=== PATIENT | female | born 1945 | race Caucasian/White ===

== ENCOUNTER 2024-01-23 19:42 | Inpatient (IN) | payer OTHER, MEDICAID ==
[~2024-01-23] VITALS: Ht 154.9 cm; Wt 67.6 kg
[2024-01-23 20:07] VITALS: BP_SYST 104; PULSE 79; RESP 16; TEMP 98; O2SAT 94
[2024-01-23] MEDS: OXYMETAZOLINE HCL 0.05% NASAL SPRAY NS ONE (20:08)
[2024-01-23] MEDS ORDERED: ONDANSETRON 4 MG ODT TAB ONE (20:35)
[2024-01-23] MEDS: TRANEXAMIC ACID 1,000 MG/10 ML VIAL IV ONE (20:39)
[2024-01-23] MEDS: ONDANSETRON HCL 4 MG/2 ML VIAL IVP ONE (20:45)
[2024-01-23] MEDS ORDERED: LIDOCAINE VISCOUS 2%, 15 ML UDC ONE (20:58)
[2024-01-23 21:22] LABS: BASOPHILS # (AUTO) 0.1 K/uL (0.0-0.2); BASOPHILS % (AUTO) 0.7 % (0.0-2.0); EOSINOPHILS # (AUTO) 0.1 K/uL (0.0-0.4); EOSINOPHILS % (AUTO) 1.1 % (0.0-4.0); HEMATOCRIT 32.9 % (36-48); HEMOGLOBIN 10.5 g/dL (12.0-16.0); LYMPHOCYTES % (AUTO) 10.4 % (20.5-51.5); MEAN CORPUSCULAR HEMOGLOBIN 26 pg (27-31); MEAN CORPUSCULAR HGB CONC 32 % (32-36); MEAN CORPUSCULAR VOLUME 81 fL (79.0-98.0); MONOCYTES # (AUTO) 1.1 K/uL (0.0-1.0); MONOCYTES % (AUTO) 11.8 % (1.7-9.3); NEUTROPHILS # (AUTO) 7.4 K/uL (1.8-7.7); PLATELET COUNT (AUTO) 400 K/uL (130-430); RED BLOOD CELL COUNT(AUTO) 4.07 MIL/uL (4.2-6.2); RED CELL DISTRIBUTION WIDTH 21.7 % (9.0-15.0); WHITE BLOOD COUNT (AUTO) 9.7 K/uL (4.8-10.8)
[2024-01-23 21:31] LABS: ANION GAP 4 (5-15); CALCIUM 8.8 mg/dL (8.4-11.0); CARBON DIOXIDE 35 mmol/L (23-29); CHLORIDE 95 mmol/L (98-107); CREATININE 1.29 mg/dL (0.55-1.30); GLUCOSE 215 mg/dL (74-106); POTASSIUM 4.4 mmol/L (3.5-5.1); SODIUM SERUM 134 mmol/L (136-145); UREA NITROGEN, BLOOD 65 mg/dL (8-21)
[2024-01-23] MEDS: ACETAMINOPHEN 500 MG TABLET PO ONE (21:36)
[2024-01-23] MEDS: LIDOCAINE VISCOUS 2%, 15 ML UDC MM ONE (21:42)
[2024-01-23 21:43] LABS: INR 4.2 (0.8-1.2); PROTHROMBIN TIME 40.3 SECS (9.5-12.5)
[2024-01-23] MEDS: PHYTONADIONE 10 MG/ML AMP IV ONE (23:52)
[2024-01-24] VITALS (10 sets, daily range): BP systolic 85–144; PULSE 62–87; RESP 16–18; TEMP 96.7–97.9; O2SAT 96–100
[2024-01-24] MEDS: ACETAMINOPHEN 325 MG TABLET PO PRN (11:22)
[2024-01-24] MEDS ORDERED: OXYM15MI9 NS (12:06)
[2024-01-24] MEDS ORDERED: MUC10RT MC (12:06)
[2024-01-24] MEDS ORDERED: ACET325T53 PO (12:06)
[2024-01-24] MEDS ORDERED: ALBU2.5V7 INH (12:07)
[2024-01-24] MEDS ORDERED: BACL10TA PO (12:10)
[2024-01-24] MEDS ORDERED: BISA-140 PO (12:15)
[2024-01-24] MEDS ORDERED: BUME1TAB9 PO (12:17)
[2024-01-24] MEDS ORDERED: BRIM5DRO21 (12:17)
[2024-01-24] MEDS ORDERED: FEBU40TA6 (12:30)
[2024-01-24] MEDS ORDERED: DAPA10TA7 (12:30)
[2024-01-24] MEDS ORDERED: CLOP75TA32 PO (12:30)
[2024-01-24] MEDS ORDERED: PRED5TAB PO (12:30)
[2024-01-24] MEDS ORDERED: DOCU-144 PO (12:30)
[2024-01-24] MEDS ORDERED: PRAV80TA20 PO (12:30)
[2024-01-24] MEDS ORDERED: GUAI100S14 PO (12:30)
[2024-01-24] MEDS ORDERED: TAMS-11 PO (12:30)
[2024-01-24] MEDS ORDERED: METH1TAB35 PO (12:30)
[2024-01-24] MEDS ORDERED: CEL250 PO (12:30)
[2024-01-24] MEDS ORDERED: SPIR50TA5 PO (12:30)
[2024-01-24] MEDS ORDERED: MELA5TAB21 PO (12:30)
[2024-01-24] MEDS ORDERED: IPRATROPIUM BROM 0.5 MG/2.5 ML VIAL.NEB (ATROVENT) INH PRN (13:30)
[2024-01-24] MEDS ORDERED: LORazepam 2 MG/ML VIAL IVP PRN (13:30)
[2024-01-24] MEDS ORDERED: BACLOFEN 10 MG TABLET PO PRN (13:30)
[2024-01-24] MEDS ORDERED: HYDROcodone/ACETAMIN 10-325 MG TAB PO PRN (13:30)
[2024-01-24] MEDS ORDERED: ACETAMINOPHEN 325 MG TABLET PO PRN (13:30)
[2024-01-24] MEDS ORDERED: ALBUTEROL SULFATE 0.083% 2.5 MG/3 ML VIAL.NEB INH PRN (13:30)
[2024-01-24] MEDS ORDERED: ONDANSETRON HCL 4 MG/2 ML VIAL IVP PRN (13:30)
[2024-01-24] MEDS ORDERED: BISACODYL 5 MG TABLET.DR (DULCOLAX) PO PRN (13:30)
[2024-01-24] MEDS ORDERED: MELATONIN 5 MG TABLET PO PRN (13:30)
[2024-01-24] MEDS ORDERED: HYDROcodone/ACETAMIN 5-325 MG TAB (NORCO/ VICODIN) PO PRN (13:30)
[2024-01-24] MEDS ORDERED: DOCUSATE SODIUM 100 MG CAPSULE PO PRN (13:30)
[2024-01-24] MEDS ORDERED: NALOXONE HCL 0.4 MG/ML AMP (NARCAN) IVP PRN ×2 (13:30)
[2024-01-24] MEDS ORDERED: SSNOVOLOG SUBCUT (13:45)
[2024-01-24] MEDS ORDERED: INSU100V9 SQ (13:45)
[2024-01-24] MEDS: INSULIN REGULAR, HUMAN 100 UNITS/ML, 3 ML VIAL (humuLIN R) SUBCUT PRN (13:49)
[2024-01-24] MEDS: SPIRONOLACTONE 50 MG TABLET (ALDACTONE) PO ONE (14:53)
[2024-01-24] MEDS: TAMSULOSIN HCL 0.4 MG CAP PO ONE (14:53)
[2024-01-24] MEDS: NORMAL SALINE 5 ML DISP.SYRIN IVF SCH (14:54)
[2024-01-24] MEDS: EMPAGLIFLOZIN 10 MG TABLET PO ONE (16:36)
[2024-01-24] MEDS: INSULIN Lispro 100 UNITS/ML, 3 ML VIAL (humaLOG) SUBCUT SCH (17:18)
[2024-01-24 17:31] LABS: BASOPHILS % (AUTO) 0.4 % (0.0-2.0); EOSINOPHILS # (AUTO) 0.2 K/uL (0.0-0.4); EOSINOPHILS % (AUTO) 2.3 % (0.0-4.0); HEMATOCRIT 31.9 % (36-48); HEMOGLOBIN 10.4 g/dL (12.0-16.0); LYMPHOCYTES # (AUTO) 0.8 K/uL (1.0-5.5); LYMPHOCYTES % (AUTO) 8.9 % (20.5-51.5); MEAN CORPUSCULAR HEMOGLOBIN 26 pg (27-31); MEAN CORPUSCULAR HGB CONC 33 % (32-36); MEAN CORPUSCULAR VOLUME 80 fL (79.0-98.0); MONOCYTES # (AUTO) 1.4 K/uL (0.0-1.0); MONOCYTES % (AUTO) 14.9 % (1.7-9.3); NEUTROPHILS # (AUTO) 6.7 K/uL (1.8-7.7); NEUTROPHILS % (AUTO) 73.5 % (40.0-70.0); PLATELET COUNT (AUTO) 398 K/uL (130-430); RED BLOOD CELL COUNT(AUTO) 3.97 MIL/uL (4.2-6.2); RED CELL DISTRIBUTION WIDTH 21.6 % (9.0-15.0); WHITE BLOOD COUNT (AUTO) 9.1 K/uL (4.8-10.8)
[2024-01-24 17:38] LABS: ANION GAP 6 (5-15); CALCIUM 8.8 mg/dL (8.4-11.0); CARBON DIOXIDE 31 mmol/L (23-29); CHLORIDE 96 mmol/L (98-107); CREATININE 1.23 mg/dL (0.55-1.30); GLUCOSE 307 mg/dL (74-106); POTASSIUM 4.1 mmol/L (3.5-5.1); SODIUM SERUM 133 mmol/L (136-145); UREA NITROGEN, BLOOD 53 mg/dL (8-21)
[2024-01-24 17:43] LABS: INR 1.3 (0.8-1.2); PROTHROMBIN TIME 13.3 SECS (9.5-12.5)
[2024-01-24] MEDS: METHENAMINE HIPPURATE 1 GM PO SCH (21:00)
[2024-01-24] MEDS ORDERED: NON-FORMULARY MEDICATION (Methenamine Hippurate 1 TAB) PO SCH (21:00)
[2024-01-24] MEDS: mycophenolate mofetiL 250 MG CAPSULE PO SCH (21:21)
[2024-01-24] MEDS: BUMETANIDE 1 MG TABLET PO SCH (21:22)
[2024-01-24] MEDS: TIMOLOL MALEATE 0.5% OPHTHALMIC DROPS 5 ML BOTH EYES SCH (21:22)
[2024-01-24] MEDS: BRIMONIDINE TARTRATE 0.2% 5 mL EYE DROPS BOTH EYES SCH (21:22)
[2024-01-24] MEDS: ATORVASTATIN 20 MG TABLET PO SCH (21:22)
[2024-01-24] MEDS: INSULIN GLARGINE 100 UNITS/ML, 10 ML VIAL SQ SCH (21:31)
[2024-01-25 01:46] VITALS: BP_SYST 100; PULSE 76; RESP 18; TEMP 98.4; O2SAT 96
[2024-01-25 04:00] VITALS: BP_SYST 112; PULSE 85; RESP 20; TEMP 97.6; O2SAT 97
[2024-01-25 08:04] VITALS: BP_SYST 105; PULSE 97; RESP 18; TEMP 98; O2SAT 96
[2024-01-25 08:04] LABS: ANION GAP 6 (5-15); CALCIUM 8.6 mg/dL (8.4-11.0); CARBON DIOXIDE 31 mmol/L (23-29); CHLORIDE 96 mmol/L (98-107); CREATININE 0.98 mg/dL (0.55-1.30); GLUCOSE 307 mg/dL (74-106); POTASSIUM 3.9 mmol/L (3.5-5.1); SODIUM SERUM 133 mmol/L (136-145); UREA NITROGEN, BLOOD 41 mg/dL (8-21)
[2024-01-25 08:27] LABS: BASOPHILS % (AUTO) 0.1 % (0.0-2.0); EOSINOPHILS # (AUTO) 0.1 K/uL (0.0-0.4); EOSINOPHILS % (AUTO) 1.2 % (0.0-4.0); HEMATOCRIT 31.8 % (36-48); HEMOGLOBIN 10.1 g/dL (12.0-16.0); LYMPHOCYTES # (AUTO) 0.7 K/uL (1.0-5.5); LYMPHOCYTES % (AUTO) 6.5 % (20.5-51.5); MEAN CORPUSCULAR HEMOGLOBIN 26 pg (27-31); MEAN CORPUSCULAR HGB CONC 32 % (32-36); MEAN CORPUSCULAR VOLUME 81 fL (79.0-98.0); MONOCYTES # (AUTO) 1.5 K/uL (0.0-1.0); MONOCYTES % (AUTO) 13.2 % (1.7-9.3); NEUTROPHILS # (AUTO) 8.7 K/uL (1.8-7.7); PLATELET COUNT (AUTO) 401 K/uL (130-430); RED BLOOD CELL COUNT(AUTO) 3.94 MIL/uL (4.2-6.2); RED CELL DISTRIBUTION WIDTH 21.5 % (9.0-15.0); WHITE BLOOD COUNT (AUTO) 11.1 K/uL (4.8-10.8)
[2024-01-25] MEDS: CLOPIDOGREL BISULFATE 75 MG TABLET PO SCH (08:37)
[2024-01-25] MEDS: predniSONE 5 MG TABLET PO SCH (08:38)
[2024-01-25] MEDS: EMPAGLIFLOZIN 10 MG TABLET PO SCH (08:39)
[2024-01-25] MEDS: SPIRONOLACTONE 50 MG TABLET (ALDACTONE) PO SCH (08:50)
[2024-01-25] MEDS ORDERED: TAMSULOSIN HCL 0.4 MG CAP PO SCH (09:00)
[2024-01-25] MEDS: TAMSULOSIN HCL 0.4 MG CAP PO SCH (09:11)
[2024-01-25 11:20] VITALS: BP_SYST 100; PULSE 79; RESP 16; TEMP 98.1; O2SAT 96
[2024-01-25] MEDS ORDERED: BISO5TAB15 PO (14:24)
[2024-01-25] MEDS: ATENOLOL 50 MG TABLET (TENORMIN) PO ONE (16:48)
[2024-01-25 17:01] VITALS: BP_SYST 100; PULSE 74; RESP 18; TEMP 98.2; O2SAT 97
[2024-01-25 20:05] VITALS: BP_SYST 111; PULSE 78; RESP 19; TEMP 98.9; O2SAT 97
[2024-01-25] MEDS ORDERED: BISOPROLOL FUMARATE 5 MG TABLET PO SCH (21:00)
[2024-01-26 00:42] VITALS: BP_SYST 99; PULSE 78; RESP 18; TEMP 98.4; O2SAT 96
[2024-01-26 05:50] LABS: BASOPHILS # (AUTO) 0.1 K/uL (0.0-0.2); BASOPHILS % (AUTO) 0.5 % (0.0-2.0); EOSINOPHILS # (AUTO) 0.1 K/uL (0.0-0.4); EOSINOPHILS % (AUTO) 0.9 % (0.0-4.0); HEMATOCRIT 30.7 % (36-48); HEMOGLOBIN 9.9 g/dL (12.0-16.0); LYMPHOCYTES # (AUTO) 0.9 K/uL (1.0-5.5); LYMPHOCYTES % (AUTO) 6.6 % (20.5-51.5); MEAN CORPUSCULAR HEMOGLOBIN 26 pg (27-31); MEAN CORPUSCULAR HGB CONC 32 % (32-36); MEAN CORPUSCULAR VOLUME 80 fL (79.0-98.0); MONOCYTES # (AUTO) 1.9 K/uL (0.0-1.0); NEUTROPHILS # (AUTO) 10.3 K/uL (1.8-7.7); PLATELET COUNT (AUTO) 363 K/uL (130-430); RED BLOOD CELL COUNT(AUTO) 3.84 MIL/uL (4.2-6.2); RED CELL DISTRIBUTION WIDTH 21.8 % (9.0-15.0); WHITE BLOOD COUNT (AUTO) 13.2 K/uL (4.8-10.8)
[2024-01-26 06:25] LABS: ALANINE AMINOTRANSFERASE 42 U/L (12-78); ANION GAP 6 (5-15); ASPARTATE AMINOTRANSFERASE 50 U/L (10-37); CALCIUM 8.3 mg/dL (8.4-11.0); CARBON DIOXIDE 32 mmol/L (23-29); CHLORIDE 96 mmol/L (98-107); CREATININE 0.93 mg/dL (0.55-1.30); GLUCOSE 173 mg/dL (74-106); POTASSIUM 3.6 mmol/L (3.5-5.1); SODIUM SERUM 134 mmol/L (136-145); TOTAL BILIRUBIN 0.7 mg/dL (0.0-1.0); TOTAL PROTEIN, SERUM 6.5 g/dL (6.4-8.3); UREA NITROGEN, BLOOD 35 mg/dL (8-21)
[2024-01-26 08:45] VITALS: O2SAT 97
[2024-01-26] MEDS: ATENOLOL 50 MG TABLET (TENORMIN) PO SCH (08:55)
[2024-01-26] MEDS ORDERED: ATENOLOL 50 MG TABLET (TENORMIN) PO SCH (09:00)
[2024-01-26 11:49] VITALS: BP_SYST 99; PULSE 82; RESP 18; TEMP 97.7; O2SAT 96
[2024-01-26 14:45] VITALS: O2SAT 98
[2024-01-26 16:27] VITALS: BP_SYST 106; PULSE 107; RESP 16; TEMP 97.9; O2SAT 95
[2024-01-26 20:05] VITALS: BP_SYST 101; PULSE 67; RESP 18; TEMP 97.8; O2SAT 95
[2024-01-26] MEDS: PIPERACILLIN/TAZO 3.375 GM in D5W 50 ML IV SCH (21:34)
[2024-01-26] MEDS: WARFARIN SODIUM 2 MG TABLET PO SCH (23:00)
[2024-01-26] MEDS: VANCOMYCIN HCL 1,000 MG in NS 250 ML IV SCH (23:24)
[2024-01-27] VITALS (7 sets, daily range): BP systolic 84–100; PULSE 65–89; RESP 16–18; TEMP 96.5–98.3; O2SAT 95–99
[2024-01-27 00:16] LABS: BILIRUBIN,URINE NEGATIVE (NEGATIVE); CLARITY/URINE SL CLOUDY (CLEAR); COLOR,URINE YELLOW (YELLOW); GLUCOSE,URINE 3+ (NEGATIVE); KETONES,URINE NEGATIVE (NEGATIVE); LEUKOCYTE ESTERASE ,URINE 2+ (NEGATIVE); NITRITE, URINE NEGATIVE (NEGATIVE); PROTEIN URINE NEGATIVE (NEGATIVE); UROBILINOGEN,URINE 0.2 (0.2-1.0)
[2024-01-27 00:33] LABS: BLOOD, URINE TRACE (NEGATIVE); WBC,URINE >100 /HPF (0-3)
[2024-01-27 00:34] LABS: BACTERIA,URINE MANY /HPF (None Seen); YEAST,URINE Many /HPF (None Seen)
[2024-01-27 04:39] LABS: ERYTHROCYTE SEDIMENTATION RATE 68 MM/HR (0-20)
[2024-01-27 04:55] LABS: PROTHROMBIN TIME 10.8 SECS (9.5-12.5)
[2024-01-27 05:09] LABS: BASOPHILS % (AUTO) 0.4 % (0.0-2.0); EOSINOPHILS # (AUTO) 0.2 K/uL (0.0-0.4); HEMATOCRIT 31.8 % (36-48); HEMOGLOBIN 10.1 g/dL (12.0-16.0); LYMPHOCYTES % (AUTO) 10.1 % (20.5-51.5); MEAN CORPUSCULAR HEMOGLOBIN 26 pg (27-31); MEAN CORPUSCULAR HGB CONC 32 % (32-36); MEAN CORPUSCULAR VOLUME 81 fL (79.0-98.0); MONOCYTES # (AUTO) 1.6 K/uL (0.0-1.0); MONOCYTES % (AUTO) 16.5 % (1.7-9.3); NEUTROPHILS # (AUTO) 6.8 K/uL (1.8-7.7); PLATELET COUNT (AUTO) 338 K/uL (130-430); RED BLOOD CELL COUNT(AUTO) 3.95 MIL/uL (4.2-6.2); RED CELL DISTRIBUTION WIDTH 21.8 % (9.0-15.0); WHITE BLOOD COUNT (AUTO) 9.6 K/uL (4.8-10.8)
[2024-01-27 05:10] LABS: ANION GAP 8 (5-15); CALCIUM 8.3 mg/dL (8.4-11.0); CARBON DIOXIDE 30 mmol/L (23-29); CHLORIDE 98 mmol/L (98-107); CREATININE 0.97 mg/dL (0.55-1.30); GLUCOSE 165 mg/dL (74-106); POTASSIUM 4.2 mmol/L (3.5-5.1); SODIUM SERUM 136 mmol/L (136-145); UREA NITROGEN, BLOOD 30 mg/dL (8-21)
[2024-01-27] MEDS: NS 500 ML IV ONE (10:08)
[2024-01-27] MEDS: FLUCONAZOLE 200 mg/ NS 100 ML IV SCH (16:38)
[2024-01-27] MEDS: CALCIUM GLUC 2 GM/100ML-NACL 100 ML IV ONE (18:22)
[2024-01-27] MEDS: OXYMETAZOLINE HCL 0.05% NASAL SPRAY NS ONE (18:30)
[2024-01-28] VITALS (7 sets, daily range): BP systolic 95–110; PULSE 74–88; RESP 16–19; TEMP 96.2–97.9; O2SAT 96–98
[2024-01-28 05:24] LABS: BASOPHILS # (AUTO) 0.1 K/uL (0.0-0.2); BASOPHILS % (AUTO) 0.6 % (0.0-2.0); EOSINOPHILS # (AUTO) 0.2 K/uL (0.0-0.4); EOSINOPHILS % (AUTO) 2.2 % (0.0-4.0); HEMATOCRIT 30.4 % (36-48); HEMOGLOBIN 9.7 g/dL (12.0-16.0); LYMPHOCYTES # (AUTO) 0.9 K/uL (1.0-5.5); LYMPHOCYTES % (AUTO) 10.8 % (20.5-51.5); MEAN CORPUSCULAR HEMOGLOBIN 26 pg (27-31); MEAN CORPUSCULAR HGB CONC 32 % (32-36); MEAN CORPUSCULAR VOLUME 81 fL (79.0-98.0); MONOCYTES # (AUTO) 1.2 K/uL (0.0-1.0); MONOCYTES % (AUTO) 14.2 % (1.7-9.3); NEUTROPHILS % (AUTO) 72.2 % (40.0-70.0); PLATELET COUNT (AUTO) 346 K/uL (130-430); RED BLOOD CELL COUNT(AUTO) 3.77 MIL/uL (4.2-6.2); RED CELL DISTRIBUTION WIDTH 21.6 % (9.0-15.0); WHITE BLOOD COUNT (AUTO) 8.3 K/uL (4.8-10.8)
[2024-01-28 05:29] LABS: ERYTHROCYTE SEDIMENTATION RATE 67 MM/HR (0-20)
[2024-01-28 05:52] LABS: INR 1.1 (0.8-1.2); PROTHROMBIN TIME 11.2 SECS (9.5-12.5)
[2024-01-28 06:13] LABS: ALANINE AMINOTRANSFERASE 30 U/L (12-78); ALBUMIN 2.8 g/dL (3.4-4.8); ANION GAP 7 (5-15); ASPARTATE AMINOTRANSFERASE 28 U/L (10-37); CALCIUM 8.3 mg/dL (8.4-11.0); CARBON DIOXIDE 31 mmol/L (23-29); CHLORIDE 98 mmol/L (98-107); CREATININE 0.88 mg/dL (0.55-1.30); GLUCOSE 176 mg/dL (74-106); POTASSIUM 3.6 mmol/L (3.5-5.1); SODIUM SERUM 136 mmol/L (136-145); TOTAL BILIRUBIN 0.5 mg/dL (0.0-1.0); TOTAL PROTEIN, SERUM 6.4 g/dL (6.4-8.3); UREA NITROGEN, BLOOD 24 mg/dL (8-21)
[2024-01-28] MEDS: CALCIUM GLUC 2 GM/100ML-NACL 100 ML IV ONE (14:28)
[2024-01-28] MEDS: OXYMETAZOLINE HCL 0.05% NASAL SPRAY NS PRN (14:30)
[2024-01-28] MEDS ORDERED: *HEPARIN PER PHARMACY XX PRN (18:00)
[2024-01-28] MEDS ORDERED: HEPARIN SODIUM,PORCINE 2000 UNITS/0.4 ML BOLUS IVP PRN (21:30)
[2024-01-28] MEDS ORDERED: HEPARIN SODIUM,PORCINE 3000 UNITS/0.6 ML BOLUS IVP PRN (21:30)
[2024-01-29] VITALS (7 sets, daily range): BP systolic 91–121; PULSE 67–100; RESP 16–20; TEMP 97.3–98.2; O2SAT 95–97
[2024-01-29] MEDS: HEPARIN SODIUM,PORCINE 5,000 UNITS/ML VIAL IV ONE (00:32)
[2024-01-29] MEDS: guaiFENesin 200 MG/10 ML UDC PO PRN (00:44)
[2024-01-29] MEDS: HEPARIN 25,000 UNITS in 250 ML PREMIX IV PRN (02:07)
[2024-01-29 08:30] LABS: BASOPHILS # (AUTO) 0.1 K/uL (0.0-0.2); BASOPHILS % (AUTO) 0.7 % (0.0-2.0); EOSINOPHILS # (AUTO) 0.3 K/uL (0.0-0.4); EOSINOPHILS % (AUTO) 3.8 % (0.0-4.0); HEMATOCRIT 34.5 % (36-48); HEMOGLOBIN 10.9 g/dL (12.0-16.0); LYMPHOCYTES # (AUTO) 0.9 K/uL (1.0-5.5); LYMPHOCYTES % (AUTO) 10.9 % (20.5-51.5); MEAN CORPUSCULAR HEMOGLOBIN 26 pg (27-31); MEAN CORPUSCULAR HGB CONC 32 % (32-36); MEAN CORPUSCULAR VOLUME 81 fL (79.0-98.0); MONOCYTES # (AUTO) 1.1 K/uL (0.0-1.0); MONOCYTES % (AUTO) 13.6 % (1.7-9.3); NEUTROPHILS # (AUTO) 5.8 K/uL (1.8-7.7); PLATELET COUNT (AUTO) 397 K/uL (130-430); RED BLOOD CELL COUNT(AUTO) 4.28 MIL/uL (4.2-6.2); RED CELL DISTRIBUTION WIDTH 21.6 % (9.0-15.0); WHITE BLOOD COUNT (AUTO) 8.2 K/uL (4.8-10.8)
[2024-01-29 08:34] LABS: ANION GAP 9 (5-15); CALCIUM 9.4 mg/dL (8.4-11.0); CARBON DIOXIDE 33 mmol/L (23-29); CHLORIDE 97 mmol/L (98-107); CREATININE 1.04 mg/dL (0.55-1.30); GLUCOSE 120 mg/dL (74-106); POTASSIUM 3.5 mmol/L (3.5-5.1); SODIUM SERUM 139 mmol/L (136-145); UREA NITROGEN, BLOOD 31 mg/dL (8-21)
[2024-01-29 08:41] LABS: INR 1.4 (0.8-1.2); PROTHROMBIN TIME 14.2 SECS (9.5-12.5)
[2024-01-29] MEDS: CEFEPIME 2 GM in D5W 100 ML IV SCH (08:48)
[2024-01-29 09:10] LABS: ERYTHROCYTE SEDIMENTATION RATE 98 MM/HR (0-20)
[2024-01-29] MEDS: WARFARIN SODIUM 3 MG TABLET PO SCH (17:46)
[2024-01-30 00:45] VITALS: BP_SYST 98; PULSE 99; RESP 19; TEMP 98.2; O2SAT 96
[2024-01-30 05:39] LABS: INR 1.8 (0.8-1.2); PROTHROMBIN TIME 18.1 SECS (9.5-12.5)
[2024-01-30 05:43] LABS: BASOPHILS % (AUTO) 0.5 % (0.0-2.0); EOSINOPHILS # (AUTO) 0.2 K/uL (0.0-0.4); EOSINOPHILS % (AUTO) 2.7 % (0.0-4.0); HEMATOCRIT 32.5 % (36-48); HEMOGLOBIN 10.5 g/dL (12.0-16.0); LYMPHOCYTES # (AUTO) 1.1 K/uL (1.0-5.5); LYMPHOCYTES % (AUTO) 12.4 % (20.5-51.5); MEAN CORPUSCULAR HEMOGLOBIN 26 pg (27-31); MEAN CORPUSCULAR HGB CONC 32 % (32-36); MEAN CORPUSCULAR VOLUME 80 fL (79.0-98.0); MONOCYTES # (AUTO) 1.6 K/uL (0.0-1.0); MONOCYTES % (AUTO) 17.4 % (1.7-9.3); NEUTROPHILS # (AUTO) 6.1 K/uL (1.8-7.7); PLATELET COUNT (AUTO) 368 K/uL (130-430); RED BLOOD CELL COUNT(AUTO) 4.07 MIL/uL (4.2-6.2); RED CELL DISTRIBUTION WIDTH 21.8 % (9.0-15.0); WHITE BLOOD COUNT (AUTO) 9.1 K/uL (4.8-10.8)
[2024-01-30 05:46] LABS: ERYTHROCYTE SEDIMENTATION RATE 85 MM/HR (0-20)
[2024-01-30 06:09] LABS: ALANINE AMINOTRANSFERASE 28 U/L (12-78); ALBUMIN 2.8 g/dL (3.4-4.8); ANION GAP 9 (5-15); ASPARTATE AMINOTRANSFERASE 25 U/L (10-37); CALCIUM 8.9 mg/dL (8.4-11.0); CARBON DIOXIDE 33 mmol/L (23-29); CHLORIDE 96 mmol/L (98-107); CREATININE 0.87 mg/dL (0.55-1.30); GLUCOSE 143 mg/dL (74-106); POTASSIUM 3.5 mmol/L (3.5-5.1); SODIUM SERUM 138 mmol/L (136-145); TOTAL BILIRUBIN 0.4 mg/dL (0.0-1.0); TOTAL PROTEIN, SERUM 6.6 g/dL (6.4-8.3); UREA NITROGEN, BLOOD 38 mg/dL (8-21)
[2024-01-30 08:00] VITALS: BP_SYST 149; PULSE 61; RESP 20; TEMP 97.4; O2SAT 99
[2024-01-30 12:00] VITALS: BP_SYST 137; PULSE 89; RESP 20; TEMP 98; O2SAT 96
[2024-01-30 16:00] VITALS: BP_SYST 135; PULSE 80; RESP 20; TEMP 97.8; O2SAT 96
[2024-01-30 16:15] VITALS: BP_SYST 135; PULSE 66; RESP 18; TEMP 98; O2SAT 99
== END 2024-01-30 18:05 | disposition short-term general hospital (02) | DRG 917 ==
LOC: SED 19:42 → SMU 23:09 → STU 01-26 22:59
PROVIDERS: ADMIT Preventive Medicine Preventive Medicine/Occupational Environmental Medicine; ATTEND Preventive Medicine Preventive Medicine/Occupational Environmental Medicine
PROC: 2Y41X5Z Packing of Nasal Region using Packing Material (ICD-10-PCS; principal; 2024-01-23)
DX: T45.511A Poisoning by anticoagulants, accidental (unintentional), initial encounter (principal); J18.9 Pneumonia, unspecified organism; T83.518A Infection and inflammatory reaction due to other urinary catheter, initial encounter; E87.1 Hypo-osmolality and hyponatremia; I12.0 Hypertensive chronic kidney disease with stage 5 chronic kidney disease or end stage renal disease; Z94.0 Kidney transplant status; D64.9 Anemia, unspecified; R73.9 Hyperglycemia, unspecified; E83.51 Hypocalcemia; E88.09 Other disorders of plasma-protein metabolism, not elsewhere classified; Z88.5 Allergy status to narcotic agent; Z88.6 Allergy status to analgesic agent; Z79.01 Long term (current) use of anticoagulants; Z95.2 Presence of prosthetic heart valve; R04.0 Epistaxis
CPT/HCPCS: 36415; 71045; 80048; 80053; 80202; 81000; 81001; 81015; 82948; 85025; 85610; 85651; 85730; 87040; 87081; 87086; 93005; 94010; 94070; 94760; 99285; G0378; J0692; J1450; J1644; J1815; J2001; J2543; J3370; J3430; J3490; J7050; J7060; J7512; J7517; Q0162